=== PATIENT | female | born 1960 | race Caucasian/White ===

== ENCOUNTER 2020-09-30 11:28 | Inpatient (IN) | payer BC, OTHER ==
[2020-09-30 11:52] VITALS: BMI 28.5
[2020-09-30 13:00] LABS: BASO % 0.7 % (0-2.0); EOS % 1.4 % (0-4.5); HEMATOCRIT 41.4 % (32.4-45.2); HEMOGLOBIN 13.8 GM/dL (10.7-15.3); LYMPH % 29.6 % (8-40); MCH 30.5 pg (25.7-33.7); MCHC 33.3 g/dl (32.0-36.0); MEAN CELL VOLUME 91.6 fl (80-96); MONO % 7.3 % (3.8-10.2); PLATELET COUNT 203 K/MM3 (134-434); RBC 4.52 M/mm3 (3.60-5.2); RDW 13.2 % (11.6-15.6); WHITE BLOOD COUNT 4.4 K/mm3 (4.0-10.0)
[2020-09-30] MEDS ORDERED: ASPIRIN 81 MG CHEWABLE TABLETS PO ONE (13:05)
[2020-09-30] MEDS ORDERED: ASPIRIN 81 MG CHEWABLE TABLETS ONE (13:06)
[2020-09-30 13:28] LABS: CHLORIDE 108 mmol/L (98-107); SODIUM 142 mmol/L (136-145)
[2020-09-30 13:29] LABS: CALCIUM 8.9 mg/dL (8.5-10.1)
[2020-09-30 13:31] LABS: ALBUMIN 3.7 g/dl (3.4-5.0); ANION GAP 4 MMOL/L (8-16); BLOOD UREA NITROGEN 11.4 mg/dL (7-18); CO2 29 mmol/L (21-32); GLUCOSE,RANDOM 100 mg/dL (74-106)
[2020-09-30 13:34] LABS: CREATININE 0.7 mg/dL (0.55-1.3); SGOT/AST 35 U/L (15-37); SGPT/ALT 30 U/L (13-61)
[2020-09-30 13:35] LABS: BILIRUBIN,TOTAL 0.6 mg/dL (0.2-1); TOT PROT 6.9 g/dl (6.4-8.2)
[2020-09-30 13:36] LABS: ALK PHOS 73 U/L (45-117)
[2020-09-30 15:04] LABS: MAGNESIUM 2.3 mg/dL (1.8-2.4)
[2020-09-30] MEDS: ENOXAPARIN NA (PORCINE) 40 MG/0.4 ML DISP.SYRIN SQ SCH (15:20)
[2020-09-30] MEDS ORDERED: IBUPROFEN 400 MG TABLET (FP) PO PRN (17:23)
[2020-09-30] MEDS ORDERED: ENOXAPARIN NA (PORCINE) 40 MG/0.4 ML DISP.SYRIN SQ ONE (17:54)
[2020-10-01 02:49] LABS: CALCIUM 8.7 mg/dL (8.5-10.1); CHLORIDE 112 mmol/L (98-107); SODIUM 144 mmol/L (136-145)
[2020-10-01 02:50] LABS: ANION GAP 4 MMOL/L (8-16); CO2 28 mmol/L (21-32); MAGNESIUM 2.5 mg/dL (1.8-2.4)
[2020-10-01 02:51] LABS: ALBUMIN 3.4 g/dl (3.4-5.0); BLOOD UREA NITROGEN 11.7 mg/dL (7-18); GLUCOSE,RANDOM 90 mg/dL (74-106)
[2020-10-01 02:54] LABS: CREATININE 0.7 mg/dL (0.55-1.3); SGOT/AST 22 U/L (15-37); SGPT/ALT 26 U/L (13-61)
[2020-10-01 02:55] LABS: CHOLESTEROL 274 mg/dL (50-200); PHOSPHOROUS 3.9 mg/dL (2.5-4.9); TRIGLYCERIDES 140 mg/dL (0-150)
[2020-10-01 02:56] LABS: LDL CHOLESTEROL (ONLY SJRH) 158 mg/dL (5-100); TOT PROT 6.4 g/dl (6.4-8.2)
[2020-10-01 02:57] LABS: BILIRUBIN,TOTAL 0.6 mg/dL (0.2-1); HDL CHOLESTEROL 72 mg/dL (40-60)
[2020-10-01 02:58] LABS: ALK PHOS 65 U/L (45-117)
[2020-10-01 05:56] VITALS: BP 120/71; PULSE 69; TEMP 97.6
[2020-10-01 06:43] LABS: BASO % 0.8 % (0-2.0); EOS % 3.5 % (0-4.5); HEMATOCRIT 41.4 % (32.4-45.2); HEMOGLOBIN 13.8 GM/dL (10.7-15.3); LYMPH % 44.6 % (8-40); MCH 30.5 pg (25.7-33.7); MCHC 33.3 g/dl (32.0-36.0); MEAN CELL VOLUME 91.6 fl (80-96); MONO % 9.5 % (3.8-10.2); NEUT % 41.6 % (42.8-82.8); PLATELET COUNT 202 K/MM3 (134-434); RBC 4.52 M/mm3 (3.60-5.2); RDW 13.4 % (11.6-15.6); WHITE BLOOD COUNT 4.4 K/mm3 (4.0-10.0)
[2020-10-01] MEDS: ENOXAPARIN NA (PORCINE) 40 MG/0.4 ML DISP.SYRIN SQ SCH (13:58)
== END 2020-10-01 13:56 | disposition home or self-care (01) | DRG 313 ==
LOC: JER 11:28 → JERBED 13:17
PROVIDERS: ADMIT Internal Medicine; ATTEND Internal Medicine
DX: R07.89 Other chest pain (principal); U07.1 COVID-19; F41.8 Other specified anxiety disorders; R00.2 Palpitations
CPT/HCPCS: 36415; 71046-TC-FY; 80053; 80061; 82550; 82728; 83036; 83615; 83721; 83735; 84100; 84443; 84484; 85025; 85379; 85651; 86140; 86769; 93005; 93010; 93308; 99285-25; C9803; U0003; U0005